=== PATIENT | female | born 1995 | race Caucasian/White ===

== ENCOUNTER 2017-03-28 20:27 | Emergency (ER) | payer SELFPAY ==
[~2017-03-28] VITALS: Ht 167.6 cm; Wt 65.0 kg
[2017-03-28 20:46] VITALS: BP 123/57; PULSE 81; RESP 16; TEMP 98.7; O2SAT 98
[2017-03-28 22:41] LABS: BLOOD, URINE MOD (NEG); GLUCOSE,URINE NEG (NEG); KETONE, URINE 40 mg/dL (NEG); NITRITE,URINE NEG (NEG)
[2017-03-28 22:47] LABS: MUCUS URINE FEW /lpf (OCC); URINE COLOR YELLOW (YELLW/STRAW)
[2017-03-28 22:48] LABS: BACTERIA, URINE FEW /hpf; COMMENT (UR) CULTURE INDICATED; CULTURE IF INDICATED CULTURE INDICATED
[2017-03-28] MEDS ORDERED: MACR100C2 PO (23:05)
[2017-03-28] MEDS ORDERED: DIFL150T PO (23:05)
--- NOTE | 2017-03-28 23:06 | PD ---
HPI Chief Complaint: Complaint Time Seen by Provider: 22:55 Travel History International Travel<30 days: No Contact w/Intl Traveler<30days: No Traveled to known affect area: No History of Present Illness HPI The patient is a 21-year-old female that complains of dysuria, frequency and urgency for 2 days. She has vomited 4 times yesterday but is not nauseated now. She denies any fever. She does have a history of frequent urinary tract infections and in October had her urethra stretched and bladder washed out. The patient also thinks she has a yeast infection with itching and burning in the area, she has had these before and this is the way it feels. The burning is not severe. PFSH Past Medical History Medical other: Yes (recurrent UTI) Tetanus Vaccination: < 5 Years Influenza Vaccination: No ?: Not LMP: NOW Past Surgical History Tonsillectomy: Yes Other Surgery: Yes (cystoscopey) Social History Alcohol Use: No Tobacco Use: No Substance Use: No Allergies-Medications (Allergen,Severity, Reaction): Coded Allergies: acetaminophen (Verified Allergy, Severe, Rash, 03/28/17) hydrocodone (Verified Allergy, Severe, Rash, 03/28/17) morphine (Verified Allergy, Severe, Swelling, 03/28/17) amoxicillin (Verified Allergy, Intermediate, VAGINAL RASH, 03/28/17) Reported Meds & Prescriptions Reported Meds & Active Scripts Active No Active Prescriptions or Reported Medications Review of Systems Except as stated in HPI: all other systems reviewed are Neg Physical Exam Narrative GENERAL: The patient is alert, oriented 3 in minimal apparent distress with her suprapubic discomfort. Her vital signs are normal. SKIN: Focused skin assessment warm/dry. HEAD: Atraumatic. Normocephalic. EYES: Pupils equal and round. No scleral icterus. No injection or drainage. ENT: No nasal bleeding or discharge. Mucous membranes pink and moist. NECK: Trachea midline. No JVD. CARDIOVASCULAR: Regular rate and rhythm. No murmur appreciated. RESPIRATORY: No accessory muscle use. Clear to auscultation. Breath sounds equal bilaterally. GASTROINTESTINAL: Abdomen soft, non-tender, nondistended. Hepatic and splenic margins not palpable. There is no flank tenderness present. No guarding or rebound is present. MUSCULOSKELETAL: No obvious deformities. No clubbing. No cyanosis. No edema. NEUROLOGICAL: Awake and alert. No obvious cranial nerve deficits. Motor grossly within normal limits. Normal speech. PSYCHIATRIC: Appropriate mood and affect; insight and judgment normal. Data Data Last Documented VS Vital Signs Date Time Temp Pulse Resp B/P (MAP) Pulse Ox O2 Delivery O2 Flow Rate FiO2 03/28/17 20:46 98.7 81 16 123/57 (79) 98 Orders Orders Urinalysis - C+S If Indicated (03/28/17 20:48) Ed Urine Pregnancytest Poc (03/28/17 20:48) Urine Culture (03/28/17 22:26) Labs Laboratory Tests Test 03/28/17 22:26 Urine Color YELLOW Urine Turbidity CLOUDY Urine pH 6.0 Urine Specific [place] 1.018 Urine Protein NEG mg/dL Urine Glucose (UA) NEG mg/dL Urine Ketones 40 mg/dL Urine Occult Blood MOD Urine Nitrite NEG Urine Bilirubin NEG Urine Leukocyte Esterase MOD Urine RBC 4-9 /hpf Urine WBC 50-99 /hpf Urine Squamous Epithelial Cells 6-8 /hpf Urine Bacteria FEW /hpf Urine Mucus FEW /lpf Microscopic Urinalysis Comment CULTURE INDICATED MDM Medical Decision Making Medical Screen Exam Complete: Yes Emergency Medical Condition: Yes Medical Record Reviewed: Yes Interpretation(s) The urine shows cloudy turbidity, moderate occult blood, moderate leukocyte esterase with 4-9 red cells and 50-99 white cells and few bacteria and culture is indicated. Differential Diagnosis Urinary tract infection, herpes simplex-none unlikely, yeast infection, interstitial cystitis Narrative Course The patient appears to have cystitis. She also likely has a yeast infection. Plan: The patient be given Macrobid as well as Diflucan. She needs to follow- up with her yard conductor or urologist. Diagnosis Primary Impression: Cystitis Additional Impression: Yeast vaginitis Additional Instructions: We will give you a Diflucan now but you may need to take it after the antibiotic is completed. I gave you 3 Diflucan tablets if you get the yeast symptoms again. Follow-up with your urologist/yard conductor. Med/Other Pt SpecificInfo: Prescription(s) given Scripts Nitrofurantoin Monohydrate Macrocrystals (Macrobid) 100 Mg Capsule 100 MG PO BID for Infection for 10 Days, #20 CAP 0 Refills Prov: Jhon Flores MD 03/28/17 Fluconazole (Diflucan) 150 Mg Tab 150 MG PO ONCE for Infection, #3 TAB 0 Refills Prov: Jhon Flores MD 03/28/17 Disposition: 01 DISCHARGE HOME Condition: Stable Jhon Flores MD Mar 28, 2017 23:06
[2017-03-28 23:14] VITALS: BP 135/70
[2017-03-28] MEDS ORDERED: NITROFURANTOIN MONOHYD MACROCR 100 MG CAP PO ONE (23:15)
[2017-03-28] MEDS ORDERED: FLUCONAZOLE 100 MG TAB PO ONE (23:15)
== END 2017-03-28 23:19 | disposition home or self-care (01) ==
LOC: PHED 20:27
DX: N30.90 Cystitis, unspecified without hematuria (principal); B96.89 Other specified bacterial agents as the cause of diseases classified elsewhere; B37.3 Candidiasis of vulva and vagina
CPT/HCPCS: 81001; 84703; 87086; 99284